=== PATIENT | male | born 1940 | race Caucasian/White ===

== ENCOUNTER → 2017-02-13 | Outpatient (CLI) | payer MEDICARE, OTHER | END | disposition home or self-care (01) | LOC: CVU 13:48 | PROVIDERS: ATTEND Family Medicine | DX: I35.0 Nonrheumatic aortic (valve) stenosis (principal); I34.0 Nonrheumatic mitral (valve) insufficiency; I11.0 Hypertensive heart disease with heart failure; E78.5 Hyperlipidemia, unspecified | CPT/HCPCS: 93306 ==

== ENCOUNTER → 2017-02-21 | Outpatient (CLI) | payer MEDICARE, OTHER | END | disposition home or self-care (01) | LOC: CFH 07:39 | PROVIDERS: ATTEND Family Medicine | DX: Z13.6 Encounter for screening for cardiovascular disorders (principal); Z87.891 Personal history of nicotine dependence | CPT/HCPCS: 93978 ==

== ENCOUNTER → 2018-07-17 | Outpatient (CLI) | payer MEDICARE, OTHER | END | disposition home or self-care (01) | LOC: CVU 12:39 | PROVIDERS: ATTEND Internal Medicine Cardiovascular Disease | DX: I51.7 Cardiomegaly (principal); E78.5 Hyperlipidemia, unspecified | CPT/HCPCS: 93306 ==

== ENCOUNTER 2019-12-26 10:56 | Day surgery (SDC) | payer MEDICARE, OTHER ==
[~2019-12-26] VITALS: Ht 175.3 cm; Wt 72.7 kg
[2019-12-26 11:27] VITALS: BP 140/97
[2019-12-26] MEDS ORDERED: SODIUM CHLORIDE 0.9% 1,000 ML IV SCH ×2 (11:30→16:30)
[2019-12-26] MEDS ORDERED: eye vitamin PO (11:51)
[2019-12-26] MEDS ORDERED: OMEP-110 PO (11:51)
[2019-12-26] MEDS ORDERED: TRIA5PAS10 TP (11:51)
[2019-12-26] MEDS ORDERED: MOME220A10 INH (11:51)
[2019-12-26] MEDS ORDERED: ALBU6.7H8 INH (11:51)
[2019-12-26] MEDS ORDERED: VIT1CAPS11 PO (11:51)
[2019-12-26] MEDS ORDERED: HYDR25TA6 PO (11:51)
[2019-12-26] MEDS ORDERED: METO25TA91 PO (11:51)
[2019-12-26] MEDS ORDERED: BUDE10.22 INH (11:51)
[2019-12-26] MEDS ORDERED: FINA5TAB4 PO (11:51)
[2019-12-26] MEDS ORDERED: EPIN0.3P3 IM (11:51)
[2019-12-26] MEDS ORDERED: SAW1CAPS8 PO (11:51)
[2019-12-26] MEDS ORDERED: LISI5TAB7 PO (11:51)
[2019-12-26 12:00] LABS: ANION GAP 5 mmol/L (5-15); CALCIUM 9.9 mg/dL (8.5-10.1); CHLORIDE 104 mmol/L (98-107)
[2019-12-26 12:12] LABS: BASOPHILS % (AUTO) 1 % (0-1); EOSINOPHILS % (AUTO) 1 % (1-7); LYMPHOCYTES % (AUTO) 18 % (22-44); MEAN CORPUSCULAR HEMOGLOBIN 32.4 pg (27.5-34.5); MEAN CORPUSCULAR HGB CONC 34.1 g/dL (33.2-36.2); MEAN PLATELET VOLUME 10.7 fL (7.4-10.4); MONOCYTES % (AUTO) 6 % (2-9); NEUTROPHILS % (AUTO) 75 % (42-75); PLATELET COUNT 202 x10^3/uL (130-400); RED BLOOD COUNT 5.16 x10^6/uL (4.38-5.82); RED CELL DISTRIBUTION WIDTH 13.6 % (9.4-14.8)
[2019-12-26 12:13] LABS: MD NO
[2019-12-26] MEDS ORDERED: FENTANYL PF 100 MCG/2ML ONE (15:26)
[2019-12-26] MEDS ORDERED: VERAPAMIL 2.5 MG/ML, 2ML ONE (15:26)
[2019-12-26] MEDS ORDERED: TICAGRELOR 90 MG TABLET ONE (15:26)
[2019-12-26] MEDS ORDERED: BIVALIRUDIN 250 MG ONE (15:26)
[2019-12-26] MEDS ORDERED: LIDOCAINE-MPF 1%, 5ML ONE (15:26)
[2019-12-26] MEDS ORDERED: MIDAZOLAM 1 MG/ML, 5ML ONE (15:26)
[2019-12-26] MEDS ORDERED: HEPARIN 1,000 UNITS/ML, 10ML ONE (15:26)
== END 2019-12-26 16:42 | disposition home or self-care (01) ==
LOC: CACL 10:56
PROVIDERS: ATTEND Internal Medicine Cardiovascular Disease
DX: I35.0 Nonrheumatic aortic (valve) stenosis (principal); I10 Essential (primary) hypertension; I44.7 Left bundle-branch block, unspecified; J45.909 Unspecified asthma, uncomplicated; Z79.899 Other long term (current) drug therapy; Z87.891 Personal history of nicotine dependence
CPT/HCPCS: 36415; 80048; 85025; 93454; 99156; C1769; C1894; J2250; J3010; Q9967; J0583; J1644

== ENCOUNTER → 2020-01-01 | Outpatient (CLI) | payer MEDICARE, OTHER ==
[~2020-01-01] MED LIST: ALBU6.7H8 INH; BUDE10.22 INH; EPIN0.3P3 IM; FINA5TAB4 PO; HYDR25TA6 PO; LISI5TAB7 PO; METO25TA91 PO; METOPROLOL 1 MG/ML, 5ML ONE; MOME220A10 INH; OMEP-110 PO; SAW1CAPS8 PO; TRIA5PAS10 TP; VISIPAQUE 320 MG/ML, 150ML BOTTLE ONE; VIT1CAPS11 PO; eye vitamin PO
== END | disposition home or self-care (01) ==
LOC: CVU 09:51
PROVIDERS: ATTEND Internal Medicine Cardiovascular Disease
DX: Z01.810 Encounter for preprocedural cardiovascular examination (principal); I65.23 Occlusion and stenosis of bilateral carotid arteries; I35.8 Other nonrheumatic aortic valve disorders; N40.0 Benign prostatic hyperplasia without lower urinary tract symptoms; R06.02 Shortness of breath; J98.11 Atelectasis; Q25.46 Tortuous aortic arch
CPT/HCPCS: 71275; 74174; 93880; Q9967

== ENCOUNTER → 2020-01-02 | Outpatient (CLI) | payer MEDICARE, OTHER ==
[~2020-01-02] MED LIST changes: -METOPROLOL 1 MG/ML, 5ML ONE; -VISIPAQUE 320 MG/ML, 150ML BOTTLE ONE
== END | disposition home or self-care (01) ==
LOC: STAR 09:02
PROVIDERS: ATTEND Anesthesiology
DX: Z01.812 Encounter for preprocedural laboratory examination (principal); Z20.828 Contact with and (suspected) exposure to other viral communicable diseases
CPT/HCPCS: 36415; 87635

== ENCOUNTER → 2020-02-06 | Outpatient (CLI) | payer MEDICARE, OTHER ==
[~2020-02-06] MED LIST changes: +ASPI81TA45 PO
== END | disposition home or self-care (01) ==
LOC: CVU 09:44
PROVIDERS: ATTEND Internal Medicine Cardiovascular Disease
DX: I34.8 Other nonrheumatic mitral valve disorders (principal); R06.02 Shortness of breath; I65.29 Occlusion and stenosis of unspecified carotid artery
CPT/HCPCS: 93306